=== PATIENT | male | born 1950 | race Caucasian/White ===

== ENCOUNTER 2022-03-19 13:47 | Outpatient (CLI) | payer MEDICARE, SELFPAY ==
--- NOTE | 2022-03-19 14:00 | CRLHL7_ITS ---
For Patients: As a result of the Century Cures Act, medical imaging exams and procedure reports are released immediately into your electronic medical record. You may view this report before your referring provider. If you have questions, please contact your health care provider. Indication: Abdominal pain Technique: Noncontrast CT abdomen and pelvis. Please note that all CT scans at this facility use dose modulation, iterative reconstruction, and/or weight-based dosing when appropriate to reduce radiation dose to as low as reasonably achievable. Comparison: 01/06/2022 Findings: Mild dependent areas of atelectasis. No pleural effusion. No hiatal hernia. Normal noncontrast enhanced liver. Multiple calcified stones in the gallbladder again noted, measuring up to 1.1 cm. The spleen is normal. Mild atrophy of the pancreas. Small duodenal diverticulum incidentally noted. Normal adrenal glands. Kidneys and ureters normal. Vascular calcifications. No adenopathy. Normal appendix. Prostate mildly prominent. No bladder stone. Sigmoid diverticulosis. No diverticulitis. No bowel obstruction or free air. No free fluid or abscess. Degenerative facet arthropathy L5-S1. No fracture. The small bowel appears normal on today`s exam. Impression: Chronic sigmoid diverticulosis. No diverticulitis. No evidence of jejunal enteritis on today`s exam. Chronic cholelithiasis. Please note that all CT scans at this facility use dose modulation, iterative reconstruction, and/or weight-based dosing when appropriate to reduce radiation dose to as low as reasonably achievable. Dictated by Boaz Lane MD @ 03/19/2022 3:36:17 PM (Electronically Signed)
== END 2022-03-19 13:48 | disposition home or self-care (01) ==
LOC: CT 13:49
PROVIDERS: PCP Family Medicine; Visit Provider Family Medicine
DX: R10.9 Unspecified abdominal pain (principal); K57.30 Diverticulosis of large intestine without perforation or abscess without bleeding; K80.20 Calculus of gallbladder without cholecystitis without obstruction
CPT/HCPCS: 74176

== ENCOUNTER 2022-08-31 10:11 | Outpatient (CLI) | payer MEDICARE, SELFPAY | END 2022-08-31 10:12 | disposition home or self-care (01) | LOC: FBOREF 09-02 11:04 | PROVIDERS: PCP Family Medicine; Visit Provider Family Medicine | DX: R35.0 Frequency of micturition (principal); N39.0 Urinary tract infection, site not specified | CPT/HCPCS: 87086 ==